=== PATIENT | male | born 2000 | race Two or more races ===

== ENCOUNTER 2021-05-15 18:23 | Emergency (ER) | payer OTHER ==
[~2021-05-15] VITALS: Ht 172.7 cm; Wt 86.2 kg
[2021-05-15 19:06] VITALS: BP 146/82
[2021-05-15] MEDS ORDERED: LIDOCAINE W/ EPINEPHRINE 1% 20ML VIAL ONE (19:14)
[2021-05-15] MEDS ORDERED: TETANUS-DIPTH-ACEL PERTUSSIS 0.5ML SYR Tdap IM ONE (20:00)
== END 2021-05-15 21:43 | disposition home or self-care (01) ==
LOC: ER 18:23
DX: S50.02XA Contusion of left elbow, initial encounter (principal); S01.01XA Laceration without foreign body of scalp, initial encounter; S60.512A Abrasion of left hand, initial encounter; W05.2XXA Fall from non-moving motorized mobility scooter, initial encounter; Y93.89 Activity, other specified; Y92.89 Other specified places as the place of occurrence of the external cause; Y99.8 Other external cause status
CPT/HCPCS: 12001; 73080; 90471; 90715